=== PATIENT | female | born 1985 | race Caucasian/White ===

== ENCOUNTER 2022-03-08 19:12 | Emergency (ER) | payer OTHER ==
[2022-03-08 19:56] LABS: Absolute Lymphocytes (CBC) 1.4 K/uL (0.7-4.9); Hematocrit 33.3 % (36.0-45.0); Lymphocytes % 17.4 % (15.3-44.8); MCV 75.1 fL (80-100); MPV 9.6 fL (7.6-11.3); RBC Red Blood Cell Count 4.43 M/uL (3.86-4.86)
[2022-03-08 20:02] LABS: Albumin 3.8 g/dL (3.4-5.0); Bilirubin Total 0.6 mg/dL (0.2-1.0); Potassium 3.8 mmol/L (3.5-5.1); Protein, Total 7.1 g/dL (6.4-8.2)
--- NOTE | 2022-03-08 20:17 | RAD REPORT ---
EXAM DESCRIPTION: RAD - Chest Single View - 03/08/2022 7:56 pm CLINICAL HISTORY: Chemical exposure COMPARISON: No comparisons FINDINGS: Lines: None. Lungs: No evidence of edema or pneumonia. Pleural: No significant pleural effusions or pneumothorax. Cardiac: The heart size is within normal limits. Mediastinum: Within normal limits. Bones: No acute fractures. Other: None IMPRESSION: No acute cardiopulmonary disease.
--- NOTE | 2022-03-08 20:48 | ER ---
Nurse's Notes [facility] Name: Amanda Ha Age: 37 yrs Sex: Female : 1985 Arrival Date: 03/08/2022 Time: 19:16 Bed 5 Private MD: Diagnosis: Contact with and (suspected) exposure to hazardous, chiefly nonmedicinal, chemicals Presentation: 03/08 19:21 Chief complaint: EMS states: Pt reports possibly inhaling Dichlorophenol. She was jb4 wearing all her safety gear. Reported smelling the chemical and leaving the area. Denies burning of the air way or skin. Coronavirus screen: At this time, the client does not indicate any symptoms associated with coronavirus-19. Ebola Screen: No symptoms or risks identified at this time. Initial Sepsis Screen: Does the patient meet any 2 criteria? No. Patient's initial sepsis screen is negative. Does the patient have a suspected source of infection? No. Patient's initial sepsis screen is negative. Risk Assessment: Do you want to hurt yourself or someone else? Patient reports no desire to harm self or others. Onset of symptoms was March 08, 2022. Transition of care: patient was not received from another setting of care. 19:21 Method Of Arrival: EMS: [facility] jb4 19:21 Acuity: CR 2 jb4 Historical: - Allergies: 19:27 No Known Allergies; jb4 - PMHx: 19:27 Anemia; jb4 - PSHx: 19:27 None; jb4 - Immunization history:: Adult Immunizations up to date. Screenin:37 [facility] ED Fall Risk Assessment (Adult) History of falling in the last 3 months, jb4 including since admission No falls in past 3 months (0 pts) Confusion or Disorientation No (0 pts) Intoxicated or Sedated No (0 pts) Impaired Gait No (0 pts) Mobility Assist Device Used No (0 pt) Altered Elimination No (0 pt) Score/Fall Risk Level 0 - 2 = Low Risk Oriented to surroundings, Maintained a safe environment. Abuse screen: Denies threats or abuse. Nutritional screening: No deficits noted. Tuberculosis screening: No symptoms or risk factors identified. Assessment: 19:27 General: Appears in no apparent distress. comfortable, Behavior is calm, cooperative, jb4 appropriate for age. Pain: Denies pain. Neuro: Level of Consciousness is awake, alert, obeys commands, Oriented to person, place, time, situation. Cardiovascular: Patient's skin is warm and dry. Respiratory: Airway is patent Respiratory effort is even, unlabored, Respiratory pattern is regular, symmetrical, Breath sounds are clear bilaterally. Denies cough, shortness of breath labored breathing. GI: No signs and/or symptoms were reported involving the gastrointestinal system. : No signs and/or symptoms were reported regarding the genitourinary system. EENT: No signs and/or symptoms were reported regarding the EENT system. Derm: Skin is intact, Skin is pink, warm \T\ dry. Musculoskeletal: Circulation, motion, and sensation intact. Range of motion: intact in all extremities. 20:46 Reassessment: Patient appears in no apparent distress at this time. Patient and/or jb4 family updated on plan of care and expected duration. Pain level reassessed. Patient is alert, oriented x 3, equal unlabored respirations, skin warm/dry/pink. 21:03 Reassessment: Patient appears in no apparent distress at this time. Patient and/or jb4 family updated on plan of care and expected duration. Pain level reassessed. Patient is alert, oriented x 3, equal unlabored respirations, skin warm/dry/pink. Vital Signs: 19:21 BP 138 / 84; Pulse 89; Resp 18; Temp 98.2(O); Pulse Ox 100% on R/A; Pain 0/10; jb4 20:46 BP 147 / 84; Pulse 88; Resp 16; Pulse Ox 100% on R/A; jb4 ED Course: 19:16 Patient arrived in ED. vc1 19:16 Sorin Shay MD is Attending Physician. sp3 19:20 Hever Sneed, ANTHONY is Primary Nurse. jb4 19:27 Triage completed. jb4 19:27 Arm band placed on right wrist. jb4 19:27 Patient has correct armband on for positive identification. Placed in gown. Bed in low jb4 position. Call light in reach. Side rails up X 1. 19:27 Client placed on continuous cardiac and pulse oximetry monitoring. NIBP monitoring jb4 applied. 19:30 Initial lab(s) drawn, by me, sent to lab. Inserted saline lock: 20 gauge in right jb4 antecubital area, using aseptic technique. Blood collected. 19:37 CMP Sent. jb4 19:37 CBC with Diff Sent. jb4 19:58 CXR XRAY In Process Unspecified. EDMS 21:03 No provider procedures requiring assistance completed. IV discontinued, intact, jb4 bleeding controlled, No redness/swelling at site. Pressure dressing applied. Administered Medications: No medications were administered Medication: 21:03 VIS not applicable for this client. jb4 Outcome: 20:47 Discharge ordered by . sp3 21:04 Discharged to home via wheelchair, with family. jb4 21:04 Condition: stable 21:04 Discharge instructions given to patient, Instructed on discharge instructions, follow up and referral plans. Demonstrated understanding of instructions, follow-up care. 21:04 Patient left the ED. jb4 Signatures: Dispatcher [employer] EDMS Hever Sneed, RN RN jb4 Sorin Shay MD MD sp3 Marcie Joya RN RN vc1 Corrections: (The following items were deleted from the chart) 19:56 19:27 Respiratory: Airway is patent Respiratory effort is even, unlabored, Respiratory jb4 pattern is regular, symmetrical, Denies cough, shortness of breath labored breathing, jb4
--- NOTE | 2022-03-08 20:48 | EDPHYS ---
Physician Documentation [facility] Name: Amanda Ha Age: 37 yrs Sex: Female : 1985 Arrival Date: 03/08/2022 Time: 19:16 Bed 5 Private MD: ED Physician Sorin Shay HPI: 03/08 19:54 This 37 yrs old Unknown Female presents to ER via EMS with complaints of Chemical sp3 exposure and respiratory irritation. 19:54 37-year-old female with history of anemia presents after chemical exposure to sp3 2,4-Dichlorophenol at a local chemical plant. Patient states that she had PPE on which consists of gloves, suit, but no respirator. She followed her standard protocol for handling of this material. During handling which was in liquid form, the needle injector was removed from the substance and patient states that it aerosolized substance. Immediately upon smelling the phenol, patient moved away from the area and held her breath until she was was safe reasonable distance. Currently she states she has mild respiratory irritation but no other symptoms. ROS is negative for all other items. No skin exposure was noted. Patient has MSDS sheets with her and I have also looked up to substance using other resources.. Historical: - Allergies: 19:27 No Known Allergies; jb4 - PMHx: 19:27 Anemia; jb4 - PSHx: 19:27 None; jb4 - Immunization history:: Adult Immunizations up to date. ROS: 19:57 Constitutional: Negative for fever, chills, and weight loss, Eyes: Negative for injury, sp3 pain, redness, and discharge, ENT: Negative for injury, pain, and discharge, Neck: Negative for injury, pain, and swelling, Cardiovascular: Negative for chest pain, palpitations, and edema, Abdomen/GI: Negative for abdominal pain, nausea, vomiting, diarrhea, and constipation, Back: Negative for injury and pain, MS/Extremity: Negative for injury and deformity, Skin: Negative for injury, rash, and discoloration, Neuro: Negative for headache, weakness, numbness, tingling, and seizure, Psych: Negative for depression, anxiety, suicide ideation, homicidal ideation, and hallucinations, Allergy/Immunology: Negative for hives, rash, and allergies, Endocrine: Negative for neck swelling, polydipsia, polyuria, polyphagia, and marked weight changes, Hematologic/Lymphatic: Negative for swollen nodes, abnormal bleeding, and unusual bruising. 19:57 All other systems are negative. Exam: 19:57 Constitutional: This is a well developed, well nourished patient who is awake, alert, sp3 and in no acute distress. Head/Face: Normocephalic, atraumatic. Eyes: Pupils equal round and reactive to light, extra-ocular motions intact. Lids and lashes normal. Conjunctiva and sclera are non-icteric and not injected. Cornea within normal limits. Periorbital areas with no swelling, redness, or edema. ENT: Nares patent. No nasal discharge, no septal abnormalities noted. External auditory canals are clear. Oropharynx with no redness, swelling, or masses, exudates, or evidence of obstruction, uvula midline. Mucous membranes moist. Neck: Trachea midline, no thyromegaly or masses palpated, and no cervical lymphadenopathy. Supple, full range of motion without nuchal rigidity, or vertebral point tenderness. No Meningismus. Chest/axilla: Normal chest wall appearance and motion. Nontender with no deformity. No lesions are appreciated. Cardiovascular: Regular rate and rhythm with a normal S1 and S2. No gallops, murmurs, or rubs. Normal PMI, no JVD. No pulse deficits. Respiratory: Lungs have equal breath sounds bilaterally, clear to auscultation and percussion. No rales, rhonchi or wheezes noted. No increased work of breathing, no retractions or nasal flaring. Abdomen/GI: Soft, non-tender, with normal bowel sounds. No distension or tympany. No guarding or rebound. No evidence of tenderness throughout. Back: No spinal tenderness. No costovertebral tenderness. Full range of motion. Skin: Warm, dry with normal turgor. Normal color with no rashes, no lesions, and no evidence of cellulitis. MS/ Extremity: Pulses equal, no cyanosis. Neurovascular intact. Full, normal range of motion. Neuro: Awake and alert, GCS 15, oriented to person, place, time, and situation. Cranial nerves II-XII grossly intact. Motor strength 5/5 in all extremities. Sensory grossly intact. Cerebellar exam normal. Normal gait. Psych: Awake, alert, with orientation to person, place and time. Behavior, mood, and affect are within normal limits. Vital Signs: 19:21 BP 138 / 84; Pulse 89; Resp 18; Temp 98.2(O); Pulse Ox 100% on R/A; Pain 0/10; jb4 20:46 BP 147 / 84; Pulse 88; Resp 16; Pulse Ox 100% on R/A; jb4 MDM: 19:17 Patient medically screened. sp3 19:58 Data reviewed: vital signs, nurses notes, EMS record, lab test result(s), radiologic sp3 studies. ED course: 37-year-old female with history of anemia presents with chemical exposure. After consultation with all available resources, we will need to assess liver function test, renal function, respiratory status. Chest x-ray and laboratory values have been ordered. Differential diagnosis includes chemical pneumonitis, renal failure, liver failure, other metabolic derangement, among others. If work-up is negative, patient will be discharged home with follow-up in 6 to 7 days for repeat blood work and testing as per occupational health physician. Clinically have ruled out acute coronary syndrome, infectious process, traumatic process, respiratory failure, altered mental status, neurological compromise, and any other critical process at this time.. 20:46 ED course: Functioning creatinine values are all normal. Chest x-ray demonstrates no sp3 acute abnormality. We will discharge patient home at this time with follow-up with occupational health.. 03/08 19:26 Order name: CBC with Diff; Complete Time: 20:44 sp3 03/08 19:26 Order name: CMP; Complete Time: 20:44 sp3 03/08 19:26 Order name: CXR XRAY; Complete Time: 20:44 sp3 03/08 19:26 Order name: IV Saline Lock; Complete Time: 19:37 sp3 03/08 19:26 Order name: Labs collected and sent; Complete Time: 19:37 sp3 Administered Medications: No medications were administered Disposition Summary: 03/08/22 20:47 Discharge Ordered Location: Home sp3 Condition: Stable sp3 Diagnosis - Contact with and (suspected) exposure to hazardous, chiefly nonmedicinal, chemicals sp3 Followup: sp3 - With: Private Physician - When: Upon discharge from the Emergency Department - Reason: Continuance of care Discharge Instructions: - Discharge Summary Sheet sp3 - Chemical Inhalation Injury, Adult sp3 Forms: - Medication Reconciliation Form sp3 - Thank You Letter sp3 - Antibiotic Education sp3 - Prescription Opioid Use sp3 Signatures: Dispatcher [employer] Hever Russell RN RN jb4 Sorin Shay MD MD sp3
[2022-03-08 21:40] VITALS: TEMP 98.2; O2SAT 100
[2022-03-08 21:41] VITALS: BP 147/84
== END 2022-03-08 21:04 | disposition home or self-care (01) ==
LOC: ER 19:12
DX: Z77.098 Contact with and (suspected) exposure to other hazardous, chiefly nonmedicinal, chemicals (principal)
CPT/HCPCS: 36415; 71045; 80053; 85025; 99284